=== PATIENT | male | born 1950 | race Caucasian/White ===

== ENCOUNTER → 2019-10-10 | Outpatient (CLI) | payer MEDICARE, OTHER ==
--- NOTE | 2019-10-10 14:02 | Diagnostic Imaging Report ---
PROCEDURE: CT abdomen and pelvis without contrast. TECHNIQUE: Multiple contiguous axial images were obtained through the abdomen and pelvis without the use of intravenous contrast. Auto Exposure Controls were utilized during the CT exam to meet ALARA standards for radiation dose reduction. INDICATION: Left lower quadrant pain. COMPARISON: No prior studies are available for comparison. FINDINGS: Imaging through the lung bases demonstrates some linear opacities in the posterior left lower lobe suggestive of scarring or atelectasis. No discrete liver mass is identified. The gallbladder is unremarkable. No biliary ductal dilatation is seen. The pancreas and spleen are unremarkable. No adrenal mass is detected. No renal calculi or hydronephrosis is identified. Aorta is heavily calcified but non-aneurysmal. The small and large bowel loops are normal caliber. No obstruction is seen. There is diverticulosis of the sigmoid colon. There is an area of bowel wall thickening and adjacent inflammatory stranding in the proximal aspect of the sigmoid colon consistent with acute diverticulitis. No microperforation or bowel obstruction is seen. There is no fluid collection or abscess formation. The bladder and prostate are unremarkable. There is a fat-containing left inguinal hernia. There appear to be numerous varices in the anterior lower abdominal wall. A varix extends into the upper portion of the right inguinal canal as well. Bony structures are nonacute. IMPRESSION: 1. Left basilar atelectasis or scarring with associated minimal pleural thickening. 2. Findings consistent with acute sigmoid diverticulitis. There is no evidence of microperforation, obstruction or abscess formation. Dictated by: Dictated on workstation # [id number]
== END ==
LOC: RAD 13:07
DX: K57.32 Diverticulitis of large intestine without perforation or abscess without bleeding (principal)
CPT/HCPCS: 74176

== ENCOUNTER 2022-03-04 15:21 | Emergency (ER) | payer MEDICARE, OTHER ==
[~2022-03-04] VITALS: Ht 175 cm; Wt 91.0 kg
[2022-03-04] MEDS ORDERED: ACETAMINOPHEN 500 MG TAB (TYLENOL) PO ONE (15:45)
[2022-03-04] MEDS ORDERED: NS IV 1000 ML 1,000 ML IV SCH (15:45)
[2022-03-04] MEDS ORDERED: IBUPROFEN 800 MG (MOTRIN) TAB PO ONE (15:45)
[2022-03-04] MEDS ORDERED: ONDANSETRON 4 MG/2 ML (SDV) Z0FRAN IVP ONE (15:45)
--- NOTE | 2022-03-04 15:49 | ED General ---
General Chief Complaint: Cough/Cold/Flu Symptoms Stated Complaint: SOB, SORE THROAT Nursing Triage Note: PT AMB TO [facility] 9 WITH C/O SORE THROAT AND SOB THAT STARTED WEDNESDAY WHILE TRAVELING HOME FROM [facility]. PT STATES ITS HARD TO SWOLLOW ANYTHING Source of Information: Patient History of Present Illness Date Seen by Provider: March 04, 2022 Time Seen by Provider: 15:40 Initial Comments PT ARRIVES VIA POV FROM HOME BEGAN FEELING SICK ON Wednesday03/01/22, DRIVING HOME FROM [facility] AFTER HAVING A FAMILY GATHERING FOR MOTHER'S DAY. C/O NON-PRODUCTIVE COUGH C/O SORE THROAT DUE TO COUGHING C/O SHORTNESS OF BREATH WITH COUGHING PT UNAWARE OF FEVER--TEMP IS 100.6 ON ARRIVAL HERE C/O NAUSEA, NO VOMITING CHEST HURTS TO COUGH C/O NASAL CONGESTION C/O HEADACHE C/O BODY ACHES DECREASED APPETITE, STATES HE CAN STILL SMELL, BUT DOES NOT KNOW IF HE CAN TASTE-HASN'T BEEN EATING MUCH, BUT IS DRINKING FLUIDS WELL. 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 HE HAS HAD CABG AND PACEMAKER. HAS NOT SOUGHT CARE UNTIL TODAY HAS NOT TAKEN ANYTHING FOR SYMPTOMS PCP: DR. WALLS BIG DATA SOFTWARE ENGINEER: CATHIE SANCHEZ Allergies and Home Medications Allergies Coded Allergies: crab (Verified Allergy, Unknown, 03/04/22) Patient Home Medication List Benzonatate (Tessalon Perles) 100 Mg Capsule, 100 MG PO TID Prescribed by: BRADLY STEELE on 03/04/22 173 Dexamethasone (Decadron) 6 Mg Tablet, 6 MG PO DAILY Prescribed by: BRADLY STEELE on 03/04/22 172 Doxycycline Hyclate (Doxycycline Hyclate) 100 Mg Tablet, 100 MG PO BID Prescribed by: BRADLY STEELE on 03/04/22 172 Promethazine/Dextromethorphan (Promethazine-Dm Syrup) 6.25 Mg-15 Mg/5 Ml Syrup, 5 ML PO Q4H Prescribed by: BRADLY STEELE on 03/04/22 1720 Review of Systems Review of Systems Constitutional: see HPI, fever, malaise, weakness EENTM: see HPI, nose congestion, throat pain Respiratory: see HPI, short of breath Cardiovascular: see HPI Gastrointestinal: see HPI; No abdominal pain, No diarrhea; loss of appetite, nausea Genitourinary: no symptoms reported Musculoskeletal: see HPI Skin: no symptoms reported Psychiatric/Neurological: See HPI, Headache Hematologic/Lymphatic: No Symptoms Reported Immunological/Allergic: no symptoms reported Past [id number] Hx Patient Social History Tobacco Use?: No Use of E-Cig and/or Vaping dev: No Substance use?: No Alcohol Use?: Yes (2-3 SHOTS OF BOURBON DAILY) Alcohol type: Hard Liquor Alcohol Frequency: Daily Pt feels they are or have been: No Immunizations Up To Date First/Initial COVID19 Vaccinat: NOV 2020 Second COVID19 Vaccination Howard: DECEMBER 2020 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: [employer] Past Medical History Surgery/Hospitalization HX: HTN, DM, GA, STROKE, TIA, FACTOR 5 PACEMAKER, BYPASS, HERNIA Surgeries: Yes Abdominal, Cardiac, CABG, Pacemaker, Rectal Respiratory: No Cardiac: Yes (CABG; PACEMAKER FOR BRADYCARDIA; VENOUS STASIS) Cardiomyopathy, Heart Attack, High Cholesterol, Hypertension, Peripheral Va scular Neurological: Yes Stroke, TIA Genitourinary: No Gastrointestinal: Yes Abdominal Hernia Musculoskeletal: No Endocrine: Yes Diabetes, Non-Insulin dep HEENT: No Cancer: No Psychosocial: No Integumentary: Yes (VENOUS STASIS LEG ULCERS) Blood Disorders: Yes (FACTOR 5 LEIDEN) Family Medical History PAST SURGICAL HISTORY: -HERNIA REPAIR -HEMORRHOIDECTOMY -PACEMAKER -CABG Physical Exam Vital Signs Vital Signs - First Documented 03/04/22 15:28 Temp 38.1 Pulse 108 Resp 20 B/P (MAP) 140/82 (101) Capillary Refill : Height, Weight, BMI Height: '" Weight: lbs. oz. kg; 29.00 BMI Method: General Appearance: No Apparent Distress, WD/WN, Other (LOOKS MILDLY ILL. ) HEENT: PERRL/EOMI, TMs Normal, Other (NASAL CONGESTION, PHARYNX CLEAR. TONGUE COATED BROWN. 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 Norm as Tested Skin: Normal Color, Warm/Dry Focused Exam Lactate Level 03/04/22 15:45: Lactic Acid Level 1.03 Lactic Acid Level Laboratory Tests Test 03/04/22 15:45 Lactic Acid Level 1.03 MMOL/L (0.50-2.00) Progress/Results/Core Measures Suspected Sepsis SIRS Temperature: Pulse: 108 Respiratory Rate: 20 Laboratory Tests 03/04/22 15:45: White Blood Count 5.9 Blood Pressure 140 /82 Mean: 101 03/04/22 15:45: Lactic Acid Level 1.03 Laboratory Tests 03/04/22 15:45: Creatinine 0.94, INR Comment 1.9H, Platelet Count 146, Total Bilirubin 0.6 Results/Orders Lab Results Laboratory Tests Test 03/04/22 15:31 03/04/22 15:45 03/04/22 16:04 Range/Units Influenza Type A (RT-PCR) Not Detected Not Detecte Influenza Type B (RT-PCR) Not Detected Not Detecte SARS-CoV-2 RNA (RT-PCR) Detected H Not Detecte Group A Streptococcus Screen NEGATIVE NEGATIVE White Blood Count 5.9 4.3-11.0 10^3/uL Red Blood Count 4.17 L 4.30-5.52 10^6/uL Hemoglobin 13.1 L 13.3-17.7 g/dL Hematocrit 39 L 40-54 % Mean Corpuscular Volume 94 80-99 fL Mean Corpuscular Hemoglobin 31 25-34 pg Mean Corpuscular Hemoglobin Concent 33 32-36 g/dL Red Cell Distribution Width 13.7 10.0-14.5 % Platelet Count 146 130-400 10^3/uL Mean Platelet Volume 9.8 9.0-12.2 fL Immature Granulocyte % (Auto) 0 % Neutrophils (%) (Auto) 73 42-75 % Lymphocytes (%) (Auto) 12 12-44 % Monocytes (%) (Auto) 14 H 0-12 % Eosinophils (%) (Auto) 1 0-10 % Basophils (%) (Auto) 0 0-10 % Neutrophils # (Auto) 4.3 1.8-7.8 10^3/uL Lymphocytes # (Auto) 0.7 L 1.0-4.0 10^3/uL Monocytes # (Auto) 0.8 0.0-1.0 10^3/uL Eosinophils # (Auto) 0.0 0.0-0.3 10^3/uL Basophils # (Auto) 0.0 0.0-0.1 10^3/uL Immature Granulocyte # (Auto) 0.0 0.0-0.1 10^3/uL Erythrocyte Sedimentation Rate 42 H 0-30 MM/HR Prothrombin Time 21.8 H 12.2-14.7 SEC INR Comment 1.9 H 0.8-1.4 Activated Partial Thromboplast Time 47 H 24-35 SEC D-Dimer 0.54 H 0.00-0.49 UG/ML Sodium Level 139 135-145 MMOL/L Potassium Level 4.3 3.6-5.0 MMOL/L Chloride Level 103 98-107 MMOL/L Carbon Dioxide Level 26 21-32 MMOL/L Anion Gap 10 5-14 MMOL/L Blood Urea Nitrogen 11 7-18 MG/DL Creatinine 0.94 0.60-1.30 MG/DL Estimat Glomerular Filtration Rate 87 BUN/Creatinine Ratio 12 Glucose Level 101 70-105 MG/DL Lactic Acid Level 1.03 0.50-2.00 MMOL/L Calcium Level 9.1 8.5-10.1 MG/DL Corrected Calcium 8.9 8.5-10.1 MG/DL Magnesium Level 1.9 1.6-2.4 MG/DL Total Bilirubin 0.6 0.1-1.0 MG/DL Aspartate Amino Transf (AST/SGOT) 25 5-34 U/L Alanine Aminotransferase (ALT/SGPT) 35 0-55 U/L Alkaline Phosphatase 51 40-136 U/L Total Creatine Kinase 88 30-200 U/L Creatine Kinase MB 0.4 <6.6 NG/ML Myoglobin 54.4 10.0-92.0 NG/ML Troponin I < 0.028 <0.028 NG/ML C-Reactive Protein High Sensitivity 7.06 H 0.00-0.50 MG/DL B-Type Natriuretic Peptide 45.7 <100.0 PG/ML Total Protein 7.1 6.4-8.2 GM/DL Albumin 4.3 3.2-4.5 GM/DL Procalcitonin 0.07 <0.10 NG/ML Glucometer 98 70-110 MG/DL My Orders Orders - BRADLY STEELE DO Ed Iv/Invasive Line Start (03/04/22 15:43) Ekg Tracing (03/04/22:) O2 (03/04/22:43) Monitor-Rhythm Ecg Trace Only (03/04/22:43) Chest 1 View, Ap/Pa Only (03/04/22:43) Bnp [place] (03/04/22:43) Cbc With Automated Diff (03/04/22:) Comprehensive Metabolic Panel (03/04/22:) Creatine Kinase (03/04/22:) Creatine Kinase Mb (03/04/22:43) Hs C Reactive Protein (03/04/22:43) Fibrin Degradation Products (03/04/22:) Lactic Acid Analyzer (03/04/22:) Magnesium (03/04/22:43) Protime With Inr (03/04/22:) Partial Thromboplastin Time (03/04/22:43) Ua Culture If Indicated (03/04/22:43) Erythrocyte Sedimentation Rate (03/04/22:43) Myoglobin Serum (03/04/22:43) Troponin I [place] (03/04/22 15:43) Procalcitonin (Pct) (03/04/22:43) Covid 19 Inhouse Test (03/04/22:43) Blood Culture (03/04/22:43) Sputum Culture (03/04/22:43) Urine Culture (03/04/22:43) Ed Iv/Invasive Line Start (03/04/22:43) Vital Signs Adult Sepsis Patie Q15M (03/04/22:43) Remove Rings In Anticipation O (03/04/22:43) Influenza A And B By Pcr (03/04/22:43) Isolation Central Supply Req (03/04/22:43) Ed Iv/Invasive Line Start (5/11/22 15:43) Ns Iv 1000 Ml (Sodium Chloride 0.9%) (03/04/22 15:45) Ondansetron Injection (Zofran Injectio (03/04/22 15:45) Accucheck Stat ONCE (03/04/22 15:43) Acetaminophen Tablet (Tylenol Tablet) (03/04/22 15:45) Ibuprofen Tablet (Motrin Tablet) (03/04/22 15:45) Rapid Strep A Screen (03/04/22 15:48) Dexamethasone Tablet (Decadron Tablet) (03/04/22 17:30) Doxycycline Hyclate Tablet (Vibramycin T (03/04/22 17:30) Medications Given in ED Current Medications Medications Dose Ordered Sig/Wolfgang Route Start Time Stop Time Status Last Admin Dose Admin Acetaminophen 1,000 mg ONCE ONCE PO 03/04/22 15:45 03/04/22 15:49 DC 03/04/22 16:09 1,000 MG Ibuprofen 800 mg ONCE ONCE PO 03/04/22 15:45 03/04/22 15:49 DC 03/04/22 16:09 800 MG Ondansetron HCl 4 mg ONCE ONCE IVP 03/04/22 15:45 03/04/22 15:49 DC 03/04/22 16:09 4 MG Vital Signs/I&O 03/04/22 15:28 Temp 38.1 Pulse 108 Resp 20 B/P (MAP) 140/82 (101) Capillary Refill : Blood Pressure Mean: 101 Progress Note : Progress Note GIVEN ZOFRAN, DECADRON AND DOXYCYCLINE NO DYSPNEA NO HYPOXIA--O2 SAT 95% ON ROOM AIR GIVEN TYLENOL AND MOTRIN FOR FEVER NO SIGNFICIANT COUGH DURING ER STAY. NO VOMITING ECG Initial ECG Impression Date: March 04, 2022 Initial ECG Impression Time: 15:56 Initial ECG Rate: 102 Initial ECG Rhythm: S.Tach Departure Impression Primary Impression: COVID-19 Additional Impression: Pneumonia due to COVID-19 virus Disposition: 01 HOME, SELF-CARE Condition: Stable Departure-Patient Inst. Decision time for Depature: 17:17 Referrals: CONY WALLS MD (PCP) Primary Care Physician Patient Instructions: COVID-19 (DC), Preventing the Spread of an Infectious Disease, Atypical Pneumonia (Mycoplasma and Viral) (DC) Add. Discharge Instructions: QUARANTINE YOURSELF AND ALL HOUSEHOLD AND CLOSE CONTACTS FOR 10 DAYS--THIS MAY NEED TO BE EXTENDED IF YOU ARE STILL HAVING SYMPTOMS OR IF HOUSEHOLD MEMBERS START HAVING SYMPTOMS TYLENOL AND MOTRIN NEEDED FOR PAIN OR FEVER LOTS OF CLEAR LIQUIDS FOLLOW UP WITH YOUR DR IN 2 WEEKS, RETURN TO ER IF WORSE. All discharge instructions reviewed with patient and/or family. Voiced understanding. Scripts Benzonatate (TESSALON PERLES) 100 Mg Capsule 100 MG PO TID, #30 CAP Prov: BRADLY STEELE DO 03/04/22 Promethazine/Dextromethorphan (Promethazine-Dm Syrup) 6.25 Mg-15 Mg/5 Ml Syrup 5 ML PO Q4H for Cough, #200 ML Prov: BRADLY STEELE DO 03/04/22 Doxycycline Hyclate (Doxycycline Hyclate) 100 Mg Tablet 100 MG PO BID, #20 TAB 0 Refills Prov: BRADLY STEELE DO 03/04/22 Dexamethasone (Decadron) 6 Mg Tablet 6 MG PO DAILY, #10 TAB Prov: BRADLY STEELE DO 03/04/22 BRADLY STEELE DO March 04, 2022 15:49
[2022-03-04 16:03] LABS: BASOPHILS % (AUTO) 0 % (0-10); EOSINOPHILS % (AUTO) 1 % (0-10); HEMATOCRIT 39 % (40-54); HEMOGLOBIN 13.1 g/dL (13.3-17.7); LYMPHOCYTES # (AUTO) 0.7 10^3/uL (1.0-4.0); LYMPHOCYTES % (AUTO) 12 % (12-44); MEAN CORPUSCULAR HEMOGLOBIN 31 pg (25-34); MEAN CORPUSCULAR HGB CONC 33 g/dL (32-36); MEAN CORPUSCULAR VOLUME 94 fL (80-99); MEAN PLATELET VOLUME 9.8 fL (9.0-12.2); MONOCYTES # (AUTO) 0.8 10^3/uL (0.0-1.0); MONOCYTES % (AUTO) 14 % (0-12); NEUTROPHILS # (AUTO) 4.3 10^3/uL (1.8-7.8); NEUTROPHILS % (AUTO) 73 % (42-75); PLATELET COUNT 146 10^3/uL (130-400); WHITE BLOOD COUNT 5.9 10^3/uL (4.3-11.0)
[2022-03-04 16:15] LABS: ALBUMIN 4.3 GM/DL (3.2-4.5); CHLORIDE 103 MMOL/L (98-107); POTASSIUM 4.3 MMOL/L (3.6-5.0); SODIUM 139 MMOL/L (135-145)
[2022-03-04 16:17] LABS: CALCIUM 9.1 MG/DL (8.5-10.1)
[2022-03-04 16:18] LABS: GLUCOSE 101 MG/DL (70-105); TOTAL PROTEIN 7.1 GM/DL (6.4-8.2)
[2022-03-04 16:19] LABS: BILIRUBIN,TOTAL 0.6 MG/DL (0.1-1.0); CARBON DIOXIDE 26 MMOL/L (21-32)
[2022-03-04 16:21] LABS: ALKALINE PHOSPHATASE 51 U/L (40-136); FIBRIN DEGRADATION PRODUCTS 0.54 UG/ML (0.00-0.49); INR 1.9 (0.8-1.4); PROTHROMBIN TIME PATIENT 21.8 SEC (12.2-14.7)
[2022-03-04 16:22] LABS: CREATININE SERUM 0.94 MG/DL (0.60-1.30); GFR ESTIMATED 87
[2022-03-04 16:23] LABS: BUN/CREATININE RATIO 12
[2022-03-04 16:24] LABS: ALANINE AMINOTRANSFERASE 35 U/L (0-55); MAGNESIUM 1.9 MG/DL (1.6-2.4)
[2022-03-04 16:25] LABS: CREATINE KINASE 88 U/L (30-200)
[2022-03-04 16:32] LABS: CREATINE KINASE MB 0.4 NG/ML (<6.6); ERYTHROCYTE SEDIMENTATION RATE 42 MM/HR (0-30)
--- NOTE | 2022-03-04 17:08 | Diagnostic Imaging Report ---
CLINICAL INDICATION: Patient is Covid positive and dyspnea and fever. EXAM: Portable chest x-ray upright view. COMPARISON: None. FINDINGS: Lungs/pleura: There are small amorphous patchy areas of airspace opacity involving the left lung base concerning for infiltrate. There is no other infiltrate seen. There is no pneumothorax. There is no pleural effusion. Mediastinum: Unremarkable. Pulmonary vasculature: Unremarkable. Heart: Heart size within normal limits. Cardiac pacemaker/AICD is seen overlying left chest with 2 leads projecting over the heart. Postop change to the chest consistent with CABG.. Bones/extrathoracic soft tissue: There are degenerative spurs involving the spine. IMPRESSION: There is concern for minimal infiltrate involving the left lung base. Dictated by: Dictated on workstation # [id number]
[2022-03-04] MEDS ORDERED: BENZ100C18 PO ×3 (17:20→17:39)
[2022-03-04] MEDS ORDERED: DEXA6TAB6 PO ×2 (17:20→17:39)
[2022-03-04] MEDS ORDERED: DOXY100T2 PO ×2 (17:20→17:39)
[2022-03-04] MEDS ORDERED: D-ME473S11 PO ×2 (17:20→17:39)
[2022-03-04] MEDS ORDERED: NIRM1TAB PO (17:20)
[2022-03-04] MEDS ORDERED: DOXYCYCLINE 100 MG (VIBRAMYCIN) TABLET PO SCH (17:30)
[2022-03-04] MEDS ORDERED: dexAMETHasone 6 MG TAB (DECADRON) PO SCH (17:30)
[2022-03-04 17:40] VITALS: BP 105/70
[2022-03-04 17:43] LABS: BILIRUBIN,URINE NEGATIVE (NEGATIVE); CLARITY,URINE CLEAR; COLOR,URINE YELLOW; GLUCOSE, URINE (UA) NEGATIVE (NEGATIVE); KETONES,URINE TRACE (NEGATIVE); LEUKOCYTE ESTERASE ,URINE NEGATIVE (NEGATIVE); NITRITE,URINE NEGATIVE (NEGATIVE); PH,URINE 5.5 (5-9); PROTEIN,URINE NEGATIVE (NEGATIVE)
[2022-03-04 17:52] LABS: BACTERIA,URINE NEGATIVE /HPF; SQUAMOUS EPITHELIAL CELL,UR RARE /HPF
== END 2022-03-04 17:40 | disposition home or self-care (01) ==
LOC: EDUNIT# 15:21 → ER 15:23
DX: U07.1 COVID-19 (principal); J12.82 Pneumonia due to coronavirus disease 2019
CPT/HCPCS: 36415; 71045; 80053; 81000; 82550; 82553; 82947; 83605; 83735; 83874; 83880; 84145; 84484; 85025; 85379; 85610; 85652; 85730; 86141; 87040; 87088; 87430; 87636; 93005; 93041

== ENCOUNTER → 2022-07-29 | Outpatient (CLI) | payer MEDICARE, OTHER ==
[~2022-07-29] MED LIST: BENZ100C18 PO; D-ME473S11 PO; DEXA6TAB6 PO; DOXY100T2 PO; NIRM1TAB PO
--- NOTE | 2022-07-29 11:11 | Diagnostic Imaging Report ---
PROCEDURE: US left lower extremity venous. TECHNIQUE: Multiple real-time grayscale images were obtained over the left lower extremity in various projections. Additional duplex Doppler and color Doppler images were also obtained. INDICATION: Chronic venous hypertension. FINDINGS: Left common femoral vein is patent, however there is incomplete compressibility and loss of augmentation in the left superficial femoral vein. No additional filling defect is seen within the remainder of the deep veins of left lower extremity. IMPRESSION: Incompletely occlusive thrombus is seen within the left superficial vein proximally. Dictated by: Dictated on workstation # [id number]
== END ==
LOC: RAD 10:16
PROVIDERS: ATTEND Family Medicine
DX: I87.332 Chronic venous hypertension (idiopathic) with ulcer and inflammation of left lower extremity (principal); I82.812 Embolism and thrombosis of superficial veins of left lower extremity

== ENCOUNTER → 2022-07-29 | Outpatient (CLI) | payer MEDICARE, OTHER | LOC: WOUNDCARE 08:53 | PROVIDERS: ATTEND Family Medicine | DX: I87.332 Chronic venous hypertension (idiopathic) with ulcer and inflammation of left lower extremity (principal); L97.322 Non-pressure chronic ulcer of left ankle with fat layer exposed; I89.0 Lymphedema, not elsewhere classified; D68.59 Other primary thrombophilia; I25.10 Atherosclerotic heart disease of native coronary artery without angina pectoris; E66.01 Morbid (severe) obesity due to excess calories; Z86.718 Personal history of other venous thrombosis and embolism; Z68.30 Body mass index [BMI] 30.0-30.9, adult | CPT/HCPCS: 99213 ==

== ENCOUNTER → 2022-08-05 | Outpatient (CLI) | payer MEDICARE, OTHER | LOC: WOUNDCARE 10:11 | PROVIDERS: ATTEND Family Medicine | DX: I87.332 Chronic venous hypertension (idiopathic) with ulcer and inflammation of left lower extremity (principal); I96 Gangrene, not elsewhere classified; L97.322 Non-pressure chronic ulcer of left ankle with fat layer exposed; I89.0 Lymphedema, not elsewhere classified; D68.59 Other primary thrombophilia; I25.10 Atherosclerotic heart disease of native coronary artery without angina pectoris; E66.01 Morbid (severe) obesity due to excess calories; Z86.718 Personal history of other venous thrombosis and embolism; Z68.30 Body mass index [BMI] 30.0-30.9, adult | CPT/HCPCS: 99212 ==